=== PATIENT | male | born 1995 | race Caucasian/White ===

== ENCOUNTER 2019-08-10 04:08 | Emergency (ER) | payer OTHER ==
[2019-08-10 05:08] LABS: ABS Eosinophils 0.1 10^3/ul (0-0.6); ABS Lymphocytes 1.2 10^3/ul (1.0-4.8); ABS Monocytes 0.3 10^3/ul (0-0.8); ABS Neutrophils 4.6 10^3/ul (1.5-7.7); Hematocrit 42 % (42-52); Hemoglobin 14.5 g/dL (14.0-18.0); Lymphocyte % 19.8 %; Mean Corpuscular HGB Conc 35 g/dL (31-36); Mean Corpuscular Hemoglobin 34 pg (27-31); Mean Corpuscular Volume 96 fL (80-94); Mean Platelet Volume 5.9 fL (7.4-10.4); Platelet Count 246 10^3/uL (150-450); Red Blood Count 4.33 10^6 /uL (4.18-5.48); Red Cell Distribution Width 12 % (10-15); White Blood Count 6.3 10^3/uL (3.5-10.8)
--- NOTE | 2019-08-10 05:29 | ED ---
Abdominal Pain/Male - HPI Summary HPI Summary: 23 year old male with no significant past medical history presents to the emergency department with a chief complaint of RLQ abdominal pain since 0200 this morning with associated nausea. Describes this pain as a 10 out of 10 cramping/stabbing pain which does not radiate and is constant. He endorses nausea and anorexia. He has not taken any medication prior to arrival. he denies any surgical history or significant past family history. he denies all use, recreational drug use, smoking. He denies fever, chest pain, shortness of breath, pain with urination, rash, changes in bowel movements, diarrhea, vomiting. - History of Current Complaint Chief Complaint: EDAbdPain Stated Complaint: ABD PAIN PER PT Time Seen by Provider: 08/10/19 05:25 Hx Obtained From: Patient Onset/Duration: Sudden Onset, Lasting Hours Timing: Constant Severity Initially: Moderate Severity Currently: Severe Pain Intensity: 9 Pain Scale Used: 0-10 Numeric Location: Discrete At: RLQ Radiates: No Character: Sharp, Cramping Aggravating Factor(s): Movement Alleviating Factor(s): Position Associated Signs And Symptoms: Positive: Nausea. Negative: Diaphoresis, Fever, Chest Pain, Dizzy, Back Pain, Constipation, Blood in Stool, Vomiting, Diarrhea, Penile Discharge - Allergies/Home Medications Allergies/Adverse Reactions: Allergies Allergy/AdvReac Type Severity Reaction Status Date / Time No Known Allergies Allergy Verified 08/10/19 04:14 Home Medications: Home Medications NK [No Home Medications Reported] 08/10/19 [History Confirmed 08/10/19] PMH/Surg Hx/FS Hx/Imm Hx Infectious Disease History: No Infectious Disease History: Denies: Traveled Outside the [place] in Last 30 Days - Social History Alcohol Use: None Substance Use Type: Reports: None Smoking Status (MU): Never Smoked Tobacco Review of Systems Constitutional: Negative Eyes: Negative ENT: Negative Cardiovascular: Negative Respiratory: Negative Positive: Abdominal Pain, Nausea. Negative: Vomiting, Diarrhea Genitourinary: Negative Musculoskeletal: Negative Skin: Negative Neurological: Negative Psychological: Normal All Other Systems Reviewed And Are Negative: Yes Physical Exam - Summary Physical Exam Summary: Inspection reveals no ecchymosis or masses of the abdomen. Auscultation reveals normoactive bowel sounds. Palpation reveals mild tenderness in the right lower quadrant. Negative psoas, Rovsing, obturator, Lubin's, McBurney's sign. No guarding or peritoneal signs. Triage Information Reviewed: Yes Vital Signs On Initial Exam: Initial Vitals Temp Pulse Resp BP Pulse Ox 97.6 F 40 16 116/53 99 08/10/19 04:10 08/10/19 04:10 08/10/19 04:10 08/10/19 04:10 08/10/19 04:10 Vital Signs Reviewed: Yes Appearance: Positive: Well-Appearing, No Pain Distress, Well-Nourished Skin: Positive: Warm, Skin Color Reflects Adequate Perfusion Eyes: Positive: EOMI, KIERRA ENT: Positive: Hearing grossly normal Respiratory/Lung Sounds: Positive: Clear to Auscultation, Breath Sounds Present Cardiovascular: Positive: RRR, S1, S2 Abdomen Description: Positive: Soft. Negative: CVA Tenderness (R), CVA Tenderness (L), Distended, Guarding, McBurney's Point Tenderness, Peritoneal Signs, Pulsatile Mass Bowel Sounds: Positive: Present Musculoskeletal: Positive: Strength/ROM Intact Neurological: Positive: Sensory/Motor Intact, Alert, Oriented to Person Place, Time, Speech Normal Psychiatric: Positive: Normal AVPU Assessment: Alert Procedures - Sedation Patient Received Moderate/Deep Sedation with Procedure: No Diagnostics - Vital Signs Vital Signs Temp Pulse Resp BP Pulse Ox 08/10/19 05:14 98.3 F 08/10/19 04:10 97.6 F 40 16 116/53 99 - Laboratory Lab Results: Lab Results 08/10/19 Range/Units 05:02 WBC 6.3 (3.5-10.8) 10^3/uL RBC 4.33 (4.18-5.48) 10^6 /uL Hgb 14.5 (14.0-18.0) g/dL Hct 42 (42-52) % MCV 96 H (80-94) fL MCH 34 H (27-31) pg MCHC 35 (31-36) g/dL RDW 12 (10-15) % Plt Count 246 (150-450) 10^3/uL MPV 5.9 L (7.4-10.4) fL Neut % (Auto) 73.1 % Lymph % (Auto) 19.8 % Mccreary % (Auto) 5.4 % Eos % (Auto) 1.0 % Baso % (Auto) 0.7 % Absolute Neuts (auto) 4.6 (1.5-7.7) 10^3/ul Absolute Lymphs (auto) 1.2 (1.0-4.8) 10^3/ul Absolute Monos (auto) 0.3 (0-0.8) 10^3/ul Absolute Eos (auto) 0.1 (0-0.6) 10^3/ul Absolute Basos (auto) 0.0 (0-0.2) 10^3/ul Absolute Nucleated RBC 0.0 10^3/ul Nucleated RBC % 0.0 Result Diagrams: 08/10/19 05:02 08/10/19 05:02 Lab Statement: Any lab studies that have been ordered have been reviewed, and results considered in the medical decision making process. Abdominal Pain Male Course/Dx - Course Course Of Treatment: Patient was evaluated for abdominal pain. Patient seen and examined his vital signs are stable and he is afebrile. Laboratory studies were done which showed no evidence of leukocytosis with a normal CRP. Appendicitis was considered but thought unlikely based on physical exam, vitals , laboratories. Based on his normal labs it was discussed with him that the risks of CT scan at this point outweighed the benefits. he agreed to return to the emergency department if he developed any new or worsening symptoms for CT scan and further evaluation. He is to take 600 mg ibuprofen every 6 hours as needed for pain. He is to follow-up with his [facility] in 3 days if his symptoms do not improve. His pain is likely musculoskeletal in origin. - Diagnoses Differential Diagnosis/HQI/PQRI: Appendicitis, Bowel Obstruction, Constipation, Gall Bladder Disease, Renal Colic, Testicular Torsion, Other - muscle strain Provider Diagnoses: Abdominal pain Discharge ED - Sign-Out/Discharge Documenting (check all that apply): Patient Departure - Discharge Plan Condition: Stable Disposition: HOME Patient Education Materials: Acute Abdominal Pain (ED) Referrals: No Primary Care Phys,NOPCP [Primary Care Provider] - Additional Instructions: You were seen in the emergency department today for abdominal pain. Laboratory studies were done which showed no evidence of infection or inflammation. I'm uncertain what is causing your abdominal pain but this could likely be musculoskeletal in origin. Please take ibuprofen as needed for pain 600 mg every 6 hours for one week. Please follow up with [facility] in 3 days if your symptoms have not improved. Please return to the emergency department immediately if you develop any new or worsening symptoms. We agreed a CT scan at this point was not appropriate as the benefits would not outweigh the risks. If your pain continues please return to the emergency department for CT scan. - Billing Disposition and Condition Condition: STABLE Disposition: Home
[2019-08-10] MEDS ORDERED: Ketorolac *IM* INJ* 60 MG/2 ML VIAL IM ONE (05:40)
[2019-08-10 05:50] LABS: ALT 18 U/L (7-52); AST 24 U/L (13-39); Albumin 4.5 g/dL (3.2-5.2); Alkaline Phosphatase 63 U/L (34-104); Anion Gap 10 mmol/L (2-11); BUN/Creatinine Ratio 17.9 (8-20); Blood Urea Nitrogen 19 mg/dL (6-24); C Reactive Protein < 1.00 mg/L (<8.01); CO2 Carbon Dioxide 30 mmol/L (22-32); Calcium 9.7 mg/dL (8.6-10.3); Chloride 101 mmol/L (101-111); EGFR Non-African American 85.1 (>60); Globulin 2.2 g/dL (2-4); Glucose 102 mg/dL (70-100); Potassium 4.2 mmol/L (3.5-5.0); Sodium 141 mmol/L (135-145); Total Protein 6.7 g/dL (6.4-8.9)
[2019-08-10 06:39] VITALS: BP 132/63
== END 2019-08-10 06:38 | disposition home or self-care (01) ==
LOC: ED 04:08
DX: R10.9 Unspecified abdominal pain (principal)
CPT/HCPCS: 36415; 80053; 83690; 85025; 86140; 96372; 99282; J1885